=== PATIENT | female | born 1990 | race American Indian/Alaskan Native ===

== ENCOUNTER 2021-04-04 16:09 | Emergency (ER) | payer OTHER ==
[2021-04-04 16:15] VITALS: BP 114/56
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
[2021-04-04] MEDS ORDERED: CYCLOBENZAPRINE 10 MG TAB PO SCH (17:30)
[2021-04-04] MEDS ORDERED: IBUPROFEN 600 MG TAB PO SCH (17:30)
== END 2021-04-04 18:19 | disposition home or self-care (01) ==
LOC: ED 16:09
DX: M54.50 Low back pain, unspecified (principal); V49.88XA Car occupant (driver) (passenger) injured in other specified transport accidents, initial encounter; Y93.89 Activity, other specified; Y92.89 Other specified places as the place of occurrence of the external cause; Y99.8 Other external cause status
CPT/HCPCS: 72072; 72100; 99283

== ENCOUNTER 2021-04-07 20:07 | Emergency (ER) | payer OTHER ==
[2021-04-07 20:14] VITALS: BP 105/67
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
== END 2021-04-07 21:50 | disposition home or self-care (01) ==
LOC: ED 20:07
DX: M79.602 Pain in left arm (principal); M25.511 Pain in right shoulder
CPT/HCPCS: 99282